=== PATIENT | female | born 1965 | race Caucasian/White ===

== ENCOUNTER → 2019-09-29 | Outpatient (CLI) | payer OTHER ==
[~2019-09-29] MED LIST: ASPIRIN E.C. 8181 MG PO; METAMUCIL3.4 GM/DOS PO; MULTI VITAMINS1 TAB PO; VICODIN PO
== END ==
LOC: MC.RAD 11:19
DX: Z12.31 Encounter for screening mammogram for malignant neoplasm of breast (principal)

== ENCOUNTER → 2022-04-09 | Outpatient (CLI) | payer BC | LOC: COL.RAD 06:55 | DX: N83.201 Unspecified ovarian cyst, right side (principal) ==

== ENCOUNTER → 2022-12-15 | Outpatient (CLI) | payer BC | LOC: MC.RAD 09:14 | DX: Z12.31 Encounter for screening mammogram for malignant neoplasm of breast (principal) ==